=== PATIENT | female | born 1940 ===

== ENCOUNTER 2016-12-30 09:58 | Day surgery (SDC) | payer BC ==
--- NOTE | ~2016-12-30 | EGD ---
EGD REPORT [facility] [address] 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 Levaquin 750 mg IV. Complications: No immediate complications. Estimated blood loss: None. Procedure: Pre-Anesthesia Assessment: - ASA Grade Assessment: II - A patient with mild systemic disease. After obtaining informed consent, the endoscope was passed under direct vision. Throughout the procedure, the patient's blood pressure, pulse, and oxygen saturations were monitored continuously. The Endoscope was introduced through the mouth, and advanced to the second part of duodenum. Findings: Endosonographic Finding : An anechoic lesion suggestive of a cyst was identified in the genu of the pancreas. The lesion measured 20 mm. There was a single compartment thinly septated. There was no associated mass. There was no internal debris within the fluid-filled cavity. Needle aspiration for fluid was performed. Color Doppler imaging was utilized prior to needle puncture to confirm a lack of significant vascular structures within the needle path. One pass was made with the 22 gauge needle using a transgastric approach. No stylet was used. The amount of fluid collected was 1 mL. The fluid was clear. Sample(s) were sent for cytology and CEA. The pancreatic duct had a normal endosonographic appearance in the entire pancreas. The pancreatic duct measured up to 2 mm in diameter. Endosonographic imaging of the pancreas showed no mass. There was no sign of significant endosonographic abnormality in the common bile duct. No lymphadenopathy seen. There was no sign of significant endosonographic abnormality in the examined duodenum. Endosonographic images of the stomach were unremarkable. There was no sign of significant endosonographic abnormality in the esophagus. Impression: - A 20 mm cystic lesion was seen in the genu of the EGD REPORT [address] [address] NAME: LANDY CABEZAS : 36 STATUS : REG [facility] [place] PAT#: [id number] AGE: 76 ADM/REG DATE : 12/30/16 MR#: [id number] REPORT SERV DATE: 12/30/16 DICTATED BY: EMERALD ZHU DATE: 12/30/16 REPORT STATUS : Draft TRANSCRIBED BY: [employer] DATE: 12/30/16 pancreas. - The pancreatic duct had a normal endosonographic appearance in the entire pancreas. The pancreatic duct measured up to 2 mm in diameter. - There was no sign of significant pathology in the common bile duct. - There was no sign of significant pathology in the examined duodenum. - Endosonographic images of the stomach were unremarkable. - There was no sign of significant pathology in the esophagus. Recommendation: - Return to previous diet. - Continue present medications. - Cipro (ciprofloxacin) 500 mg PO BID for 2 weeks. - Repeat the upper endoscopic ultrasound in 1 year for surveillance. Procedure Code(s): --- Professional --- 76971, Esophagogastroduodenoscopy, flexible, transoral; with transendoscopic ultrasound-guided intramural or transmural fine needle aspiration/biopsy(s) (includes endoscopic ultrasound examination of the esophagus, stomach, and either the duodenum or a surgically altered stomach where the jejunum is examined distal to the anastomosis) Diagnosis Code(s): --- Professional --- K86.2, Cyst of pancreas CPT copyright 2013 [employer]. All rights reserved. The codes documented in this report are preliminary and upon it quality analyst review may be revised to meet current compliance requirements. EMERALD ZHU, 12/30/2016 12:30 PM Number of Addenda: 0 Note Initiated On: 12/30/2016 12:08 PM [address] [place] [address]
[~2016-12-30 09:58] MED LIST: LIPITOR10 PO; PRILOSEC40 MG PO; TOPXL25 PO
[2016-12-30 21:47] LABS: BD FL SOURCE (NOT ORD) PARACENTESIS
== END 2016-12-30 23:59 | disposition home or self-care (01) ==
LOC: DMU 09:58
PROVIDERS: Internal Medicine Gastroenterology
PROC: BD47ZZZ Ultrasonography of Gastrointestinal Tract (ICD-10-PCS; 2016-12-30)
PROC: 0F9G4ZX Drainage of Pancreas, Percutaneous Endoscopic Approach, Diagnostic (ICD-10-PCS; principal; 2016-12-30 11:30)
DX: D13.6 Benign neoplasm of pancreas (principal); K21.9 Gastro-esophageal reflux disease without esophagitis; I10 Essential (primary) hypertension; E78.00 Pure hypercholesterolemia, unspecified; E78.5 Hyperlipidemia, unspecified; Z79.899 Other long term (current) drug therapy; Z98.890 Other specified postprocedural states; Z90.711 Acquired absence of uterus with remaining cervical stump; Z96.89 Presence of other specified functional implants
CPT/HCPCS: 82378; 88173; 88305; 88341; 88342; C1725; J1956